=== PATIENT | female | born 1950 | race Caucasian/White ===

== ENCOUNTER 2023-12-13 15:28 | Inpatient (IN) | payer OTHER ==
[2023-12-13 19:11] LABS: VENOUS O2 SATURATION 71.3 % (70-80); VENOUS PCO2 31.7 mmHg (38-52)
[2023-12-13 19:31] LABS: INR 1.16 (0.83-1.09); PROTHROMBIN TIME (PATIENT) 13.3 SEC (9.7-13.0)
[2023-12-13 19:34] LABS: ACTIVATED PTT 25.6 SECONDS (25.2-36.5)
[2023-12-13 19:36] LABS: POTASSIUM 3.9 mmol/L (3.5-5.1)
[2023-12-13 19:38] LABS: ALBUMIN 2.7 g/dl (3.4-5.0); CALCIUM 8.7 mg/dL (8.5-10.1)
[2023-12-13 19:39] LABS: BLOOD UREA NITROGEN 31.7 mg/dL (7-18)
[2023-12-13 19:40] LABS: HEMATOCRIT 10.9 % (32.4-45.2); MCH 34.4 pg (25.7-33.7); MCHC 34.6 g/dl (32.0-36.0); MEAN CELL VOLUME 99.2 fl (80-96); MEAN PLT VOLUME 7.2 fl (7.5-11.1); PLATELET COUNT 83 10^3/uL (134-434); RDW 19.8 % (11.6-15.6)
[2023-12-13 19:43] LABS: ADD RBC MORPHOLOGY YES; BILIRUBIN,TOTAL 3.4 mg/dL (0.2-1); TOT PROT 6.4 g/dl (6.4-8.2)
[2023-12-13 19:44] LABS: HEMOGLOBIN 3.8 GM/dL (10.7-15.3)
[2023-12-13 20:17] LABS: HEMATOCRIT 11.4 % (32.4-45.2); MCH 34.3 pg (25.7-33.7); MCHC 34.8 g/dl (32.0-36.0); MEAN CELL VOLUME 98.7 fl (80-96); MEAN PLT VOLUME 6.8 fl (7.5-11.1); PLATELET COUNT 85 10^3/uL (134-434); RBC 1.15 M/mm3 (3.60-5.2); RDW 20.1 % (11.6-15.6)
[2023-12-13 20:26] LABS: ADD RBC MORPHOLOGY YES
[2023-12-13 20:27] LABS: WHITE BLOOD COUNT 1.9 K/mm3 (4.0-10.0)
[2023-12-13 20:37] LABS: ANISOCYTOSIS 1+; MACROCYTOSIS 1+
[2023-12-13 20:38] LABS: PLATELET ESTIMATE MOD DECREASED
[2023-12-13] MEDS ORDERED: CEFTRIAXONE 1 GM/50 ML BAG ONE (20:42)
[2023-12-13] MEDS ORDERED: ACETAMINOPHEN INJECTION 100 ML IVPB ONE (20:43)
[2023-12-13] MEDS: ACETAMINOPHEN 1000 MG/100 ML BAG IVPB ONE (20:55)
[2023-12-13] MEDS: SODIUM CHLORIDE 0.9% 500 ML INFUS.BAG IV ONE (21:13)
[2023-12-13] MEDS ORDERED: DEXTROSE 5%-WATER 100 ML IVPB ONE (21:15)
[2023-12-13] MEDS ORDERED: DOXYCYCLINE HYCLATE 100 MG VIAL ONE (21:15)
[2023-12-13] MEDS: DOXYCYCLINE INJECTION 100 MG in DEXTROSE 5%-WATER 100 ML IVPB ONE (21:52)
[2023-12-13 22:22] LABS: ANISOCYTOSIS 1+; MACROCYTOSIS 1+; OVALOCYTE 2+
[2023-12-13 22:23] LABS: PLATELET ESTIMATE MOD DECREASED
[2023-12-13] MEDS: SODIUM CHLORIDE 1,000 ML IV STA (22:28)
[2023-12-13 22:49] LABS: RETICULOCYTES 1.45 % (0.5-1.5)
[2023-12-14] MEDS: SODIUM CHLORIDE 500 ML IV STA (01:16)
[2023-12-14] MEDS: SODIUM CHLORIDE 1,000 ML IV STA (03:11)
[2023-12-14] MEDS: ACETAMINOPHEN 1000 MG/100 ML BAG IVPB PRN ×2 (03:56→12:23)
[2023-12-14 06:52] LABS: MCH 31.6 pg (25.7-33.7); MCHC 34.9 g/dl (32.0-36.0); MEAN CELL VOLUME 90.5 fl (80-96); MEAN PLT VOLUME 6.7 fl (7.5-11.1); PLATELET COUNT 69 10^3/uL (134-434); RBC 2.55 M/mm3 (3.60-5.2); RDW 19.5 % (11.6-15.6); WHITE BLOOD COUNT 2.1 K/mm3 (4.0-10.0)
[2023-12-14 07:08] LABS: POTASSIUM 4.2 mmol/L (3.5-5.1)
[2023-12-14 07:11] LABS: CALCIUM 8.1 mg/dL (8.5-10.1)
[2023-12-14 07:12] LABS: ALBUMIN 2.4 g/dl (3.4-5.0); BLOOD UREA NITROGEN 29.1 mg/dL (7-18)
[2023-12-14 07:15] LABS: MAGNESIUM 1.9 mg/dL (1.8-2.4); PHOSPHOROUS 3.6 mg/dL (2.5-4.9)
[2023-12-14 07:16] LABS: BILIRUBIN,TOTAL 3.3 mg/dL (0.2-1); TOT PROT 5.9 g/dl (6.4-8.2)
[2023-12-14 09:53] LABS: ANISOCYTOSIS 1+; MACROCYTOSIS 0
[2023-12-14] MEDS ORDERED: ACETAMINOPHEN INJECTION 100 ML IVPB ONE (12:25)
[2023-12-14 12:33] LABS: HIV INTERPRETATION NEGATIVE (NEGATIVE)
[2023-12-14 12:43] LABS: HEMATOCRIT 22.8 % (32.4-45.2); HEMOGLOBIN 8.1 GM/dL (10.7-15.3); MCH 31.6 pg (25.7-33.7); MCHC 35.6 g/dl (32.0-36.0); MEAN CELL VOLUME 88.8 fl (80-96); MEAN PLT VOLUME 6.6 fl (7.5-11.1); PLATELET COUNT 69 10^3/uL (134-434); RBC 2.57 M/mm3 (3.60-5.2); RDW 19.9 % (11.6-15.6); WHITE BLOOD COUNT 2.2 K/mm3 (4.0-10.0)
[2023-12-14 13:25] LABS: ANISOCYTOSIS 1+; MACROCYTOSIS 0
[2023-12-15 07:20] LABS: HEMOGLOBIN 7.6 GM/dL (10.7-15.3); MCH 31.6 pg (25.7-33.7); MCHC 36.1 g/dl (32.0-36.0); MEAN CELL VOLUME 87.7 fl (80-96); MEAN PLT VOLUME 6.8 fl (7.5-11.1); PLATELET COUNT 63 10^3/uL (134-434); RBC 2.39 M/mm3 (3.60-5.2); RDW 19.5 % (11.6-15.6)
[2023-12-15] MEDS ORDERED: ACETAMINOPHEN 325 MG TABLET (FP) PO PRN (17:49)
[2023-12-15] MEDS: ACETAMINOPHEN 1000 MG/100 ML BAG IVPB PRN (18:13)
[2023-12-17] MEDS ORDERED: ACETAMINOPHEN 325 MG TABLET (FP) PO PRN (00:59)
[2023-12-17] MEDS: ACETAMINOPHEN 1000 MG/100 ML BAG IVPB PRN (02:46)
[2023-12-17 08:48] LABS: HEMATOCRIT 19.8 % (32.4-45.2); MCH 31.1 pg (25.7-33.7); MCHC 34.7 g/dl (32.0-36.0); MEAN CELL VOLUME 89.5 fl (80-96); MEAN PLT VOLUME 6.6 fl (7.5-11.1); PLATELET COUNT 59 10^3/uL (134-434); RBC 2.22 M/mm3 (3.60-5.2); RDW 19.3 % (11.6-15.6)
[2023-12-17 09:00] LABS: POTASSIUM 4.1 mmol/L (3.5-5.1)
[2023-12-17 09:03] LABS: BLOOD UREA NITROGEN 18.1 mg/dL (7-18); CALCIUM 8.7 mg/dL (8.5-10.1)
[2023-12-17 09:04] LABS: ALBUMIN 2.3 g/dl (3.4-5.0); HEMOGLOBIN 6.9 GM/dL (10.7-15.3)
[2023-12-17 09:05] LABS: WHITE BLOOD COUNT 1.7 K/mm3 (4.0-10.0)
[2023-12-17 09:06] LABS: CREATININE 0.7 mg/dL (0.55-1.3)
[2023-12-17 09:09] LABS: BILIRUBIN,TOTAL 1.9 mg/dL (0.2-1); TOT PROT 5.5 g/dl (6.4-8.2)
[2023-12-17 10:21] LABS: ANISOCYTOSIS 1+; MACROCYTOSIS 1+
[2023-12-17 10:22] LABS: PLATELET ESTIMATE DECREASED
[2023-12-18 06:47] LABS: HEMATOCRIT 24.3 % (32.4-45.2); HEMOGLOBIN 8.7 GM/dL (10.7-15.3); MCH 31.4 pg (25.7-33.7); MCHC 35.9 g/dl (32.0-36.0); MEAN CELL VOLUME 87.4 fl (80-96); MEAN PLT VOLUME 6.4 fl (7.5-11.1); PLATELET COUNT 52 10^3/uL (134-434); RBC 2.78 M/mm3 (3.60-5.2); RDW 17.7 % (11.6-15.6)
[2023-12-18 07:07] LABS: POTASSIUM 4.1 mmol/L (3.5-5.1)
[2023-12-18 07:18] LABS: ALBUMIN 2.5 g/dl (3.4-5.0); CALCIUM 8.7 mg/dL (8.5-10.1)
[2023-12-18 07:20] LABS: BLOOD UREA NITROGEN 15.3 mg/dL (7-18)
[2023-12-18 07:22] LABS: CREATININE 0.7 mg/dL (0.55-1.3)
[2023-12-18 07:24] LABS: BILIRUBIN,TOTAL 2.3 mg/dL (0.2-1)
[2023-12-18 07:39] LABS: WHITE BLOOD COUNT 1.9 K/mm3 (4.0-10.0)
[2023-12-18 10:34] LABS: ANISOCYTOSIS 0; MACROCYTOSIS 0; OVALOCYTE 1+
[2023-12-18] MEDS: ACETAMINOPHEN 1000 MG/100 ML BAG IVPB PRN (16:25)
[2023-12-19 07:38] LABS: BASO % 0.7 % (0-2.0); EOS % 2.1 % (0-4.5); HEMATOCRIT 22.8 % (32.4-45.2); HEMOGLOBIN 8.2 GM/dL (10.7-15.3); LYMPH % 48.2 % (8-40); MCH 31.2 pg (25.7-33.7); MCHC 35.9 g/dl (32.0-36.0); MEAN PLT VOLUME 6.3 fl (7.5-11.1); MONO % 7.5 % (3.8-10.2); NEUT % 41.5 % (42.8-82.8); PLATELET COUNT 48 10^3/uL (134-434); RBC 2.62 M/mm3 (3.60-5.2); RDW 18.1 % (11.6-15.6); WHITE BLOOD COUNT 2.1 K/mm3 (4.0-10.0)
[2023-12-19 08:08] LABS: POTASSIUM 3.9 mmol/L (3.5-5.1)
[2023-12-19 08:17] LABS: ANISOCYTOSIS 3+; MACROCYTOSIS 0; OVALOCYTE 1+
[2023-12-19 08:30] LABS: ALBUMIN 2.5 g/dl (3.4-5.0); BLOOD UREA NITROGEN 16.4 mg/dL (7-18); CALCIUM 8.7 mg/dL (8.5-10.1)
[2023-12-19 08:34] LABS: CREATININE 0.7 mg/dL (0.55-1.3)
[2023-12-19 08:35] LABS: BILIRUBIN,TOTAL 1.9 mg/dL (0.2-1); TOT PROT 5.9 g/dl (6.4-8.2)
[2023-12-19] MEDS ORDERED: ALBUTEROL SO4 2.5/IPRATROPIUM 0.5 INH SOL 3 ML VIAL.NEB. NEB PRN (13:00)
[2023-12-19] MEDS: ACETAMINOPHEN 1000 MG/100 ML BAG IVPB PRN (21:38)
[2023-12-20 07:32] LABS: HEMATOCRIT 22.4 % (32.4-45.2); MCHC 35.9 g/dl (32.0-36.0); MEAN CELL VOLUME 86.4 fl (80-96); MEAN PLT VOLUME 6.5 fl (7.5-11.1); PLATELET COUNT 51 10^3/uL (134-434); RDW 17.7 % (11.6-15.6)
[2023-12-20 07:35] LABS: WHITE BLOOD COUNT 1.9 K/mm3 (4.0-10.0)
[2023-12-20 08:03] LABS: ALBUMIN 2.5 g/dl (3.4-5.0); BILIRUBIN,TOTAL 1.7 mg/dL (0.2-1); BLOOD UREA NITROGEN 21.5 mg/dL (7-18); CALCIUM 8.8 mg/dL (8.5-10.1); CREATININE 0.8 mg/dL (0.55-1.3); POTASSIUM 3.7 mmol/L (3.5-5.1); TOT PROT 5.9 g/dl (6.4-8.2)
[2023-12-20 12:00] LABS: ANISOCYTOSIS 0; HELMET CELLS 0; HOWELL-JOLLY BODIES 0; MACROCYTOSIS 0; OVALOCYTE 0; ROULEAU 0; SICKELED CELLS 0; TARGET CELLS 0; TEAR DROP CELLS 0; TOXIC GRANULATION 0
[2023-12-20] MEDS ORDERED: MIDAZOLAM HCL 2 MG/2 ML SINGLE DOSE VIAL ONE (13:23)
[2023-12-20] MEDS ORDERED: FENTANYL CITRATE/PF 50 MCG/ML VIAL ONE (13:23)
[2023-12-20] MEDS: SODIUM CHLORIDE 500 ML IV SCH (14:20)
[2023-12-20] MEDS: FENTANYL CITRATE/PF 50 MCG/ML VIAL IVPUSH ONE (14:22)
[2023-12-20] MEDS: MIDAZOLAM HCL 2 MG/2 ML SINGLE DOSE VIAL IVPUSH ONE (14:24)
[2023-12-20 16:18] VITALS: BMI 18.4
[2023-12-20] MEDS: FLUTICASONE/UMECLIDIN/VILANTER(100-62.5-25 TRELEGY ELLIPTA) INAHLER IH SCH (17:46)
[2023-12-20] MEDS: ACETAMINOPHEN 1000 MG/100 ML BAG IVPB ONE (19:59)
[2023-12-21 06:53] LABS: HEMATOCRIT 22.1 % (32.4-45.2); HEMOGLOBIN 7.7 GM/dL (10.7-15.3); MCH 30.5 pg (25.7-33.7); MCHC 34.9 g/dl (32.0-36.0); MEAN CELL VOLUME 87.5 fl (80-96); MEAN PLT VOLUME 6.4 fl (7.5-11.1); PLATELET COUNT 56 10^3/uL (134-434); RBC 2.52 M/mm3 (3.60-5.2); RDW 17.4 % (11.6-15.6)
[2023-12-21 07:10] LABS: POTASSIUM 3.9 mmol/L (3.5-5.1)
[2023-12-21 07:13] LABS: CALCIUM 8.6 mg/dL (8.5-10.1)
[2023-12-21 07:14] LABS: ALBUMIN 2.5 g/dl (3.4-5.0)
[2023-12-21 07:17] LABS: CREATININE 0.9 mg/dL (0.55-1.3)
[2023-12-21 07:18] LABS: BILIRUBIN,TOTAL 1.7 mg/dL (0.2-1)
[2023-12-21 07:19] LABS: TOT PROT 5.8 g/dl (6.4-8.2)
[2023-12-21 09:06] LABS: ANISOCYTOSIS 0; MACROCYTOSIS 0
[2023-12-21 09:11] LABS: PLATELET ESTIMATE DECREASED
[2023-12-21] MEDS: ACETAMINOPHEN 1000 MG/100 ML BAG IVPB PRN (20:02)
[2023-12-22 07:50] LABS: HEMATOCRIT 21.4 % (32.4-45.2); HEMOGLOBIN 7.6 GM/dL (10.7-15.3); MCHC 35.6 g/dl (32.0-36.0); MEAN CELL VOLUME 86.9 fl (80-96); MEAN PLT VOLUME 6.5 fl (7.5-11.1); PLATELET COUNT 70 10^3/uL (134-434); RBC 2.46 M/mm3 (3.60-5.2); RDW 17.4 % (11.6-15.6)
[2023-12-22 08:02] LABS: POTASSIUM 3.9 mmol/L (3.5-5.1)
[2023-12-22 08:07] LABS: WHITE BLOOD COUNT 1.9 K/mm3 (4.0-10.0)
[2023-12-22 08:13] LABS: ALBUMIN 2.6 g/dl (3.4-5.0); BLOOD UREA NITROGEN 21.7 mg/dL (7-18); CALCIUM 8.8 mg/dL (8.5-10.1)
[2023-12-22 08:17] LABS: CREATININE 0.8 mg/dL (0.55-1.3)
[2023-12-22 08:18] LABS: BILIRUBIN,TOTAL 1.6 mg/dL (0.2-1); TOT PROT 6.2 g/dl (6.4-8.2)
[2023-12-22 09:08] LABS: PLATELET ESTIMATE DECREASED
[2023-12-22] MEDS: FUROSEMIDE 40 MG/4 ML INJECTABLE VIAL IVPUSH SCH (10:40)
[2023-12-22 19:08] LABS: FREE KAPPA,SERUM 112.8 mg/L (3.3-19.4)
[2023-12-22] MEDS: ACETAMINOPHEN 1000 MG/100 ML BAG IVPB ONE (20:02)
[2023-12-23 08:00] LABS: MCH 30.8 pg (25.7-33.7); MCHC 35.8 g/dl (32.0-36.0); MEAN CELL VOLUME 86.2 fl (80-96); MEAN PLT VOLUME 6.6 fl (7.5-11.1); PLATELET COUNT 70 10^3/uL (134-434); RDW 16.9 % (11.6-15.6)
[2023-12-23 08:06] LABS: WHITE BLOOD COUNT 1.8 K/mm3 (4.0-10.0)
[2023-12-23 08:07] LABS: HEMOGLOBIN 6.8 GM/dL (10.7-15.3)
[2023-12-23 08:11] LABS: POTASSIUM 3.6 mmol/L (3.5-5.1)
[2023-12-23 08:12] LABS: CALCIUM 8.6 mg/dL (8.5-10.1)
[2023-12-23 08:13] LABS: BLOOD UREA NITROGEN 21.6 mg/dL (7-18)
[2023-12-23 08:16] LABS: CREATININE 0.9 mg/dL (0.55-1.3)
[2023-12-23 08:47] LABS: ANISOCYTOSIS 0; MACROCYTOSIS 0
[2023-12-23] MEDS: ACETAMINOPHEN 325 MG TABLET (FP) PO ONE (18:31)
[2023-12-24] MEDS ORDERED: ALBUTEROL SO4 2.5/IPRATROPIUM 0.5 INH SOL 3 ML VIAL.NEB. NEB PRN (02:40)
[2023-12-24 09:22] LABS: HEMATOCRIT 22.2 % (32.4-45.2); MCH 30.9 pg (25.7-33.7); MCHC 36.1 g/dl (32.0-36.0); MEAN CELL VOLUME 85.7 fl (80-96); MEAN PLT VOLUME 6.2 fl (7.5-11.1); PLATELET COUNT 71 10^3/uL (134-434); RBC 2.59 M/mm3 (3.60-5.2); RDW 17.1 % (11.6-15.6); WHITE BLOOD COUNT 2.1 K/mm3 (4.0-10.0)
[2023-12-24 09:46] LABS: POTASSIUM 3.4 mmol/L (3.5-5.1)
[2023-12-24 09:53] LABS: BLOOD UREA NITROGEN 22.1 mg/dL (7-18)
[2023-12-24 09:56] LABS: CALCIUM 8.9 mg/dL (8.5-10.1); CREATININE 0.9 mg/dL (0.55-1.3)
[2023-12-24] MEDS: ACETAMINOPHEN 1000 MG/100 ML BAG IVPB ONE (10:44)
[2023-12-24] MEDS: FLUTICASONE/UMECLIDIN/VILANTER(100-62.5-25 TRELEGY ELLIPTA) INAHLER IH SCH (11:16)
[2023-12-24 14:59] LABS: HEPATITIS B SURFACE AG CONFIRM CONFIRMED (NONREACTIVE)
[2023-12-24] MEDS: KCL 10 MEQ IVPB 10 MEQ/100 ML INFUS.BAG IVPB SCH (19:40)
[2023-12-24] MEDS: ACETAMINOPHEN 1000 MG/100 ML BAG IVPB PRN (20:15)
[2023-12-25 08:16] LABS: POTASSIUM 3.8 mmol/L (3.5-5.1)
[2023-12-25 08:19] LABS: BLOOD UREA NITROGEN 20.2 mg/dL (7-18); CALCIUM 8.7 mg/dL (8.5-10.1)
[2023-12-25 08:23] LABS: CREATININE 0.8 mg/dL (0.55-1.3)
[2023-12-25 08:32] LABS: HEMATOCRIT 22.3 % (32.4-45.2); HEMOGLOBIN 7.9 GM/dL (10.7-15.3); MCH 30.3 pg (25.7-33.7); MCHC 35.3 g/dl (32.0-36.0); MEAN PLT VOLUME 6.6 fl (7.5-11.1); PLATELET COUNT 76 10^3/uL (134-434); RBC 2.59 M/mm3 (3.60-5.2); RDW 17.3 % (11.6-15.6)
[2023-12-25 08:36] LABS: WHITE BLOOD COUNT 1.7 K/mm3 (4.0-10.0)
[2023-12-25 15:12] LABS: PARV B19 IGG 0.2 index (0.0-0.8); PARV B19 IGM 0.3 index (0.0-0.8)
[2023-12-26 08:42] LABS: HEMATOCRIT 21.2 % (32.4-45.2); HEMOGLOBIN 7.6 GM/dL (10.7-15.3); MCH 30.9 pg (25.7-33.7); MCHC 35.6 g/dl (32.0-36.0); MEAN CELL VOLUME 86.7 fl (80-96); MEAN PLT VOLUME 6.3 fl (7.5-11.1); PLATELET COUNT 74 10^3/uL (134-434); POTASSIUM 3.9 mmol/L (3.5-5.1); RBC 2.45 M/mm3 (3.60-5.2); RDW 16.9 % (11.6-15.6); WHITE BLOOD COUNT 2.1 K/mm3 (4.0-10.0)
[2023-12-26 08:43] LABS: BLOOD UREA NITROGEN 22.4 mg/dL (7-18)
[2023-12-26 08:47] LABS: CREATININE 0.8 mg/dL (0.55-1.3)
[2023-12-26] MEDS: FUROSEMIDE 20 MG TABLET (FP) PO SCH (15:49)
[2023-12-27 10:00] LABS: HEMATOCRIT 20.7 % (32.4-45.2); HEMOGLOBIN 7.4 GM/dL (10.7-15.3); MCH 30.7 pg (25.7-33.7); MCHC 35.6 g/dl (32.0-36.0); MEAN CELL VOLUME 86.2 fl (80-96); MEAN PLT VOLUME 6.5 fl (7.5-11.1); PLATELET COUNT 74 10^3/uL (134-434); RBC 2.41 M/mm3 (3.60-5.2); RDW 16.8 % (11.6-15.6)
[2023-12-27 10:23] LABS: POTASSIUM 3.8 mmol/L (3.5-5.1)
[2023-12-27 10:28] LABS: ANISOCYTOSIS 0; MACROCYTOSIS 0
[2023-12-27 10:29] LABS: CREATININE 0.7 mg/dL (0.55-1.3)
[2023-12-27] MEDS: ACETAMINOPHEN 1000 MG/100 ML BAG IVPB ONE ×2 (11:22→23:54)
[2023-12-28 13:22] LABS: HEMATOCRIT 22.5 % (32.4-45.2); MCHC 35.8 g/dl (32.0-36.0); MEAN PLT VOLUME 6.5 fl (7.5-11.1); PLATELET COUNT 82 10^3/uL (134-434); RBC 2.68 M/mm3 (3.60-5.2); RDW 17.3 % (11.6-15.6); WHITE BLOOD COUNT 2.7 K/mm3 (4.0-10.0)
[2023-12-28 13:38] LABS: POTASSIUM 3.8 mmol/L (3.5-5.1)
[2023-12-28 13:41] LABS: ALBUMIN 3.1 g/dl (3.4-5.0); BLOOD UREA NITROGEN 20.9 mg/dL (7-18); MAGNESIUM 1.9 mg/dL (1.8-2.4)
[2023-12-28 13:44] LABS: CREATININE 0.9 mg/dL (0.55-1.3)
[2023-12-28 13:45] LABS: BILIRUBIN,TOTAL 2.8 mg/dL (0.2-1); TOT PROT 7.2 g/dl (6.4-8.2)
[2023-12-28 14:05] LABS: ANISOCYTOSIS 0; HELMET CELLS 0; HOWELL-JOLLY BODIES 0; MACROCYTOSIS 0; OVALOCYTE 0; ROULEAU 0; SICKELED CELLS 0; TARGET CELLS 0; TEAR DROP CELLS 0; TOXIC GRANULATION 0
[2023-12-28] MEDS ORDERED: ACETAMINOPHEN 650 MG/20.3 ML ORAL SOLUTION (CUPS) PO PRN (17:00)
[2023-12-29] MEDS: ACETAMINOPHEN 1000 MG/100 ML BAG IVPB ONE ×2 (21:05→21:09)
[2023-12-30 09:31] LABS: INR 1.05 (0.83-1.09); PROTHROMBIN TIME (PATIENT) 11.9 SEC (9.7-13.0)
[2023-12-30 09:45] LABS: HEMATOCRIT 18.1 % (32.4-45.2); MCH 29.6 pg (25.7-33.7); MCHC 35.1 g/dl (32.0-36.0); MEAN CELL VOLUME 84.2 fl (80-96); PLATELET COUNT 79 10^3/uL (134-434); RBC 2.15 M/mm3 (3.60-5.2); RDW 17.4 % (11.6-15.6)
[2023-12-30 09:50] LABS: WHITE BLOOD COUNT 1.9 K/mm3 (4.0-10.0)
[2023-12-30 09:51] LABS: HEMOGLOBIN 6.3 GM/dL (10.7-15.3)
[2023-12-30 09:52] LABS: POTASSIUM 3.5 mmol/L (3.5-5.1)
[2023-12-30 09:57] LABS: ALBUMIN 2.7 g/dl (3.4-5.0); BLOOD UREA NITROGEN 27.9 mg/dL (7-18); CALCIUM 8.6 mg/dL (8.5-10.1); MAGNESIUM 2.2 mg/dL (1.8-2.4)
[2023-12-30 10:00] LABS: CREATININE 0.9 mg/dL (0.55-1.3)
[2023-12-30 10:01] LABS: BILIRUBIN,TOTAL 1.8 mg/dL (0.2-1); TOT PROT 6.5 g/dl (6.4-8.2)
[2023-12-30 11:19] LABS: ANISOCYTOSIS 1+; MACROCYTOSIS 0
[2023-12-30] MEDS ORDERED: MIDAZOLAM HCL 2 MG/2 ML SINGLE DOSE VIAL ONE (14:13)
[2023-12-30] MEDS ORDERED: KETAMINE HCL 200 MG/20 ML VIAL ONE (14:13)
[2023-12-30] MEDS: ceFAZolin SODIUM 1 GM VIAL IVPB ONE (14:52)
[2023-12-30] MEDS ORDERED: LIDOCAINE 1%/EPI 1:100000 (20 ML MULTI DOSE VIAL) ONE (14:59)
[2023-12-30] MEDS: LIDOCAINE 1%/EPI 1:100000 (20 ML MULTI DOSE VIAL) IJ ONE ×2 (15:05)
[2023-12-30] MEDS: BUPIVACAINE HCL/PF 0.25% (2.5MG/ML) 10 ML VIAL IJ ONE ×2 (15:05)
[2023-12-30] MEDS ORDERED: ONDANSETRON 4 MG/2 ML VIAL IVPUSH PRN ×2 (15:30→15:33)
[2023-12-30] MEDS ORDERED: ACETAMINOPHEN 650 MG/20.3 ML ORAL SOLUTION (CUPS) PO PRN (15:33)
[2023-12-30] MEDS ORDERED: ALBUTEROL SO4 2.5/IPRATROPIUM 0.5 INH SOL 3 ML VIAL.NEB. NEB PRN (15:33)
[2023-12-30] MEDS: LACTATED RINGERS SOLUTION 1,000 ML IV SCH (16:25)
[2023-12-30 17:05] VITALS: RESP 18
[2023-12-31 07:01] VITALS: BP 132/60; PULSE 88; TEMP 97.7
[2023-12-31] MEDS: FUROSEMIDE 20 MG TABLET (FP) PO SCH (09:29)
[2023-12-31] MEDS: LACTATED RINGERS SOLUTION 1,000 ML IV SCH (09:29)
[2023-12-31] MEDS: FLUTICASONE/UMECLIDIN/VILANTER(100-62.5-25 TRELEGY ELLIPTA) INAHLER IH SCH (09:48)
[2023-12-31 11:15] LABS: HEMATOCRIT 20.8 % (32.4-45.2); HEMOGLOBIN 7.4 GM/dL (10.7-15.3); MCHC 35.7 g/dl (32.0-36.0); MEAN CELL VOLUME 84.1 fl (80-96); MEAN PLT VOLUME 6.3 fl (7.5-11.1); PLATELET COUNT 87 10^3/uL (134-434); RBC 2.47 M/mm3 (3.60-5.2); WHITE BLOOD COUNT 2.5 K/mm3 (4.0-10.0)
[2023-12-31] MEDS: POTASSIUM CHLORIDE TABS 20 MEQ TABLET.ER (FP) PO ONE (11:23)
[2023-12-31 11:33] LABS: POTASSIUM 3.6 mmol/L (3.5-5.1)
[2023-12-31 11:35] LABS: ALBUMIN 2.6 g/dl (3.4-5.0); CALCIUM 8.4 mg/dL (8.5-10.1)
[2023-12-31 11:36] LABS: BLOOD UREA NITROGEN 20.8 mg/dL (7-18)
[2023-12-31 11:39] LABS: CREATININE 0.9 mg/dL (0.55-1.3)
[2023-12-31 11:40] LABS: BILIRUBIN,TOTAL 1.7 mg/dL (0.2-1); TOT PROT 6.3 g/dl (6.4-8.2)
[2023-12-31 11:43] LABS: ANISOCYTOSIS 0; MACROCYTOSIS 0
== END 2023-12-31 17:07 | disposition home or self-care (01) | DRG 720 ==
LOC: JER 15:28 → JERBED 20:28 → J4W 12-14 16:50 → J8W 12-24 02:39
PROVIDERS: ADMIT Internal Medicine; ATTEND Nurse Practitioner Acute Care
PROC: 30233N1 Transfusion of Nonautologous Red Blood Cells into Peripheral Vein, Percutaneous Approach (ICD-10-PCS; 2023-12-13)
PROC: 07DR3ZX Extraction of Iliac Bone Marrow, Percutaneous Approach, Diagnostic (ICD-10-PCS; principal; 2023-12-20)
DX: A41.9 Sepsis, unspecified organism (principal); E43 Unspecified severe protein-calorie malnutrition; D61.818 Other pancytopenia; I50.33 Acute on chronic diastolic (congestive) heart failure; J18.9 Pneumonia, unspecified organism; J44.1 Chronic obstructive pulmonary disease with (acute) exacerbation; R64 Cachexia; Z68.1 Body mass index [BMI] 19.9 or less, adult; B19.10 Unspecified viral hepatitis B without hepatic coma; D46.9 Myelodysplastic syndrome, unspecified; D64.9 Anemia, unspecified
CPT/HCPCS: 0241U-QW; 20225; 36415; 36430; 71045-TC-FY; 71275-TC; 76705-TC; 77012-TC; 80048; 80053; 80061; 82105; 82248; 82525; 82607; 82668; 82728; 82747; 82803; 83010; 83036; 83540; 83550; 83615; 83735; 83880; 83883; 84100; 84155; 84165; 84439; 84443; 84466; 84484; 85014; 85025; 85027; 85045; 85610; 85730; 86480; 86704; 86707; 86747; 86803; 86850; 86880; 86900; 86901; 86922; 87081; 87207; 87340; 87350; 87389; 87517; 87798; 88300-TC; 88307-TC; 88342-TC; 93005; 93010; 93306-TC; 94760; 94761; 97116-GP; 97161-GP; 99285-25; J0131; P9038; P9058